=== PATIENT | male | born 1985 | race African-American/Black ===

== ENCOUNTER 2018-01-09 17:31 | Emergency (ER) | payer OTHER ==
[~2018-01-09 17:31] MED LIST: IBUP-232 PO; OSEL75 PO; Z.0.NO CURRENT MEDS
[2018-01-09 17:45] VITALS: BP 133/80; PULSE 67; RESP 18; TEMP 98.8; O2SAT 99
[2018-01-09] MEDS ORDERED: ZOFR4TAB3 SL (19:44)
[2018-01-09] MEDS ORDERED: ONDANSETRON ODT 4 MG TAB PO ONE (19:45)
--- NOTE | 2018-01-09 19:45 | PD ---
HPI Chief Complaint: GI Complaint Time Seen by Provider: 19:41 Travel History International Travel<30 days: No Contact w/Intl Traveler<30days: No Traveled to known affect area: No History of Present Illness HPI 32-year-old male complains of vomiting loose bowel since lunch. He has sloppy joint works and believes it might of been somewhat spoiled. He took Pepto- Bismol which helped minimally. There is no fever. There is no abdominal pain. There is no blood in the emesis or diarrhea. Onset gradual. PFSH Past Medical History Diminished Hearing: No Seizures: Yes ( CHILD LAST ONE AT 11 YR OLD) Social History Alcohol Use: No Tobacco Use: No Substance Use: No Allergies-Medications (Allergen,Severity, Reaction): Coded Allergies: No Known Allergies (Verified Allergy, Mild, 12/18/07) Reported Meds & Prescriptions Reported Meds & Active Scripts Active Motrin (Ibuprofen) 600 Mg Tab 600 Mg PO Q8 Tamiflu (Oseltamivir Phosphate) 75 Mg Cap 75 Mg PO BID 5 Days Reported No Current Meds (Miscellaneous Medication) Misc Review of Systems Except as stated in HPI: all other systems reviewed are Neg General / Constitutional: No: Fever Physical Exam Narrative GENERAL: 32 yo M, WNWD, NAD Vital Signs Date Time Temp Pulse Resp B/P (MAP) Pulse Ox O2 Delivery O2 Flow Rate FiO2 01/09/18 17:45 98.8 67 18 133/80 (97) 99 SKIN: Warm and dry. HEAD: Atraumatic. Normocephalic. EYES: Pupils equal and round. No scleral icterus. No injection or drainage. ENT: No nasal bleeding or discharge. Mucous membranes pink and moist. NECK: Trachea midline. No JVD. CARDIOVASCULAR: Regular rate and rhythm. RESPIRATORY: No accessory muscle use. Clear to auscultation. Breath sounds equal bilaterally. GASTROINTESTINAL: Soft. No focus of tenderness. MUSCULOSKELETAL: Extremities without clubbing, cyanosis, or edema. No obvious deformities. NEUROLOGICAL: Awake and alert. No obvious cranial nerve deficits. Motor grossly within normal limits. Five out of 5 muscle strength in the arms and legs. Normal speech. PSYCHIATRIC: Appropriate mood and affect; insight and judgment normal. Data Data Last Documented VS Vital Signs Date Time Temp Pulse Resp B/P (MAP) Pulse Ox O2 Delivery O2 Flow Rate FiO2 01/09/18 17:45 98.8 67 18 133/80 (97) 99 Orders Orders Ed Discharge Order (01/09/18 19:41) Ondansetron Odt (Zofran Odt) (01/09/18 19:45) [facility] [place] Medical Decision Making Medical Screen Exam Complete: Yes Emergency Medical Condition: Yes Medical Record Reviewed: Yes Differential Diagnosis Constipation, Gastritis, Acute Cholecystitis, Biliary Colic, Pancreatitis, ROJAS , Hepatitis, Bowel Obstruction, Cystitis, Mesenteric Ischemia, AAA, Appendicitis , Renal Stone/Hydronephrosis, GERD, perforated viscous Narrative Course Overall presentation considered most in keeping with a benign etiology. Patient is quite well-appearing. Zofran ODT here. Zofran prescription. Diagnosis Primary Impression: Nausea vomiting and diarrhea Referrals: Primary Care Physician 2 days Med/Other Pt SpecificInfo: Prescription(s) given Scripts Ondansetron Odt (Zofran Odt) 4 Mg Tab 4 MG SL Q8HR Y for Nausea/Vomiting, #10 TAB 0 Refills Prov: Onur Michelle MD 01/09/18 Disposition: 01 DISCHARGE HOME Condition: Stable Onur Michelle MD Jan 09, 2018 19:45
== END 2018-01-09 20:00 | disposition home or self-care (01) ==
LOC: NEPD 17:31
DX: R11.2 Nausea with vomiting, unspecified (principal); R19.7 Diarrhea, unspecified
CPT/HCPCS: 99283